=== PATIENT | female | born 1995 ===

== ENCOUNTER 2016-11-06 16:41 | Emergency (ER) | payer OTHER ==
[2016-11-06 16:50] VITALS: TEMP 98.6
--- NOTE | 2016-11-06 17:20 | ED PDOC ---
Lower Extremity Pain/Injury Time Seen by Provider: 11/06/16 17:03 Chief Complaint (Nursing): Lower Extremity Problem/Injury Chief Complaint (Provider): Abscess History Per: Patient History/Exam Limitations: no limitations Onset/Duration Of Symptoms: Days (x2) Current Symptoms Are (Timing): Still Present Additional Complaint(s): Lavern Lora is a 21 year old female presenting to the ED for an evaluation of an abscess to her left upper thigh that began 2 days prior to arrival. The patient states she visited her PMD 2 days prior to arrival and was started on Cefadroxil which she notes she has been taking without relief. Patient notes the abscess is still draining and the persistence of her symptoms prompted her ED visit today. She denies any pain, but notes irritation to the area. The patient denies fever. Of note, the patient's last tetanus is unknown. Her last menstrual period was 10/14/16. PMD: Declan Anderson MD Past Medical History Reviewed: Historical Data, Nursing Documentation, Vital Signs Vital Signs: Last Vital Signs Temp 98.6 F 11/06/16 16:45 Pulse 104 H 11/06/16 16:45 Resp 20 11/06/16 16:45 BP 150/86 11/06/16 16:45 Pulse Ox 99 11/06/16 16:45 - Medical History PMH: No Chronic Diseases - Family History Family History: States: Unknown Family Hx - Social History Current smoker - smoking cessation education provided: No Ex-Smoker (has not smoked in the last 12 months): No Alcohol: Other Drugs: Denies - Immunization History Hx Tetanus Toxoid Vaccination: No Hx Influenza Vaccination: No Hx Pneumococcal Vaccination: No - Home Medications Home Medications: Ambulatory Orders Medication Instructions Recorded Cephalexin [Keflex] 1 tab PO Q12 #20 cap 07/20/15 Sulfamethoxazole/Trimethoprim 1 tab PO BID #20 tab 07/20/15 [Bactrim DS 800 mg-160 mg] - Allergies Allergies/Adverse Reactions: Allergies Allergy/AdvReac Type Severity Reaction Status Date / Time pollen Allergy Uncoded 07/20/15 12:09 Review of Systems ROS Statement: Except As Marked, All Systems Reviewed And Found Negative Constitutional: Negative for: Fever Musculoskeletal: Negative for: Leg Pain Skin: Positive for: Other (abscess to left upper thigh ) Physical Exam - Reviewed Nursing Documentation Reviewed: Yes Vital Signs Reviewed: Yes - Physical Exam Appears: Positive for: Non-toxic, No Acute Distress Head Exam: Positive for: ATRAUMATIC, NORMOCEPHALIC Extremity: Positive for: Other (left upper thigh: 1 x 1 cm fluctuant abscess with mild drainage with surrounding erythema and mild induration; right upper thigh: 1 x 1 cm erythematous bump, nondraining, nontendor, nonfluctant ) Neurologic/Psych: Positive for: Alert, Oriented (x3) - ECG O2 Sat by Pulse Oximetry: 99 (RA) Pulse Ox Interpretation: Normal Medical Decision Making Medical Decision Making: Time: 17:03 Impression: Abscess Plan: * Adacel 0.5 ml IM * Will drain left upper thigh abscess. Apply warm compress to right upper thigh bump. Patient advised to keep the area clean and dry. She was advised to apply warm, dry heat. She was advised to return to her PMD, Urgent Care, or ED in 2 days for packing removal and wound check. Continue taking antibiotics as prescribed by her PMD. Scribe Attestation: Documented by Mabel Freire, acting as a scribe for Irina Horn PA-C. Provider Scribe Attestation: All medical record entries made by the Scribe were at my direction and personally dictated by me. I have reviewed the chart and agree that the record accurately reflects my personal performance of the history, physical exam, medical decision making, and the department course for this patient. I have also personally directed, reviewed, and agree with the discharge instructions and disposition. Procedures - Incision and Drainage Site: left upper inner thigh Blade Size: 15 I & D Procedure: betadine prep, sterile drapes applied, gauze wick placed Progress: pt tolerated procedure and advised to keep the packing in place. Discussed with pt to follow up in ED in 2 days to take the packing out. Disposition - Clinical Impression Clinical Impression: Abscess, Cellulitis - Patient ED Disposition Is Patient to be Admitted: No Counseled Patient/Family Regarding: Diagnosis, Need For Followup, Rx Given - Disposition Referrals: [facility] [Outside] Disposition: Routine/Home Disposition Time: 17:56 Condition: FAIR Additional Instructions: KEEP AFFECTED AREA CLEAN AND DRY. PACKING TO REMAIN IN PLACE FOR 2 DAYS. CHANGE TOP DRESSING DAILY OR NEEDED. F/U WITH PMD, ED, URGENT CARE FOR PACKING REMOVAL AND WOUND CHECK. TAKE ANTIBIOTIC PRESCRIBED BY PMD. Instructions: Cellulitis (ED), Abscess (ED) Forms: [employer] (Khmer) Print Language: MONGOLIAN
[2016-11-06 18:33] VITALS: BP 128/70; PULSE 88; RESP 18
[2016-11-06 19:30] VITALS: O2SAT 99
== END 2016-11-06 18:34 | disposition home or self-care (01) ==
LOC: H.ER 16:41
DX: L02.416 Cutaneous abscess of left lower limb (principal)

== ENCOUNTER 2016-11-08 18:35 | Emergency (ER) | payer OTHER ==
[2016-11-08 18:58] VITALS: BP 155/88; PULSE 82; RESP 18; TEMP 99.5; O2SAT 98
--- NOTE | 2016-11-08 19:24 | ED PDOC ---
HPI: Wound Care - HPI Chief Complaint (Nursing): Wound Check History Per: Patient Exam Limitations: no limitations Onset/Duration Of Symptoms: Days (2) Current Symptoms Are (Timing): Better Additional History Per: Patient Additional Complaint(s): 21 y/o female s/p I&D two days ago here for wound evaluation and packing removal. Denies any complaints at this time. Past Medical History Vital Signs: Last Vital Signs Temp 99.5 F 11/08/16 18:55 Pulse 82 11/08/16 18:55 Resp 18 11/08/16 18:55 BP 155/88 H 11/08/16 18:55 Pulse Ox 98 11/08/16 18:55 - Family History Family History: States: Unknown Family Hx - Immunization History Hx Tetanus Toxoid Vaccination: No Hx Influenza Vaccination: No Hx Pneumococcal Vaccination: No - Home Medications Home Medications: Ambulatory Orders Medication Instructions Recorded Cephalexin [Keflex] 1 tab PO Q12 #20 cap 07/20/15 Sulfamethoxazole/Trimethoprim 1 tab PO BID #20 tab 07/20/15 [Bactrim DS 800 mg-160 mg] - Allergies Allergies/Adverse Reactions: Allergies Allergy/AdvReac Type Severity Reaction Status Date / Time pollen Allergy Uncoded 07/20/15 12:09 Review of Systems ROS Statement: Except As Marked, All Systems Reviewed And Found Negative Physical Exam - Physical Exam Appears: Positive for: Well, Non-toxic, No Acute Distress Skin: Positive for: Normal Color (wound is clean and dry with minimal erythema and drainage), Warm, Dry - ECG O2 Sat by Pulse Oximetry: 98 (RA) Medical Decision Making Medical Decision Making: Impression: Wound Check Packing removed from wound. There is minimal erythema and drainage. Patient tolerated well without complaint. Continue antibiotic through completion and follow up with PMD. All questions answered. Scribe Attestation Documented by Annamarie Fleming acting as a scribe for Rasheeda Carlson PA-C. Provider Attestation All medical record entries made by the Scribe were at my direction and personally dictated by me. I have reviewed the chart and agree that the record accurately reflects my personal performance of the history, physical exam, medical decision making, and the department course for this patient. I have also personally directed, reviewed, and agree with the discharge instructions and disposition. Disposition - Clinical Impression Clinical Impression: Encounter for wound re-check - Patient ED Disposition Is Patient to be Admitted: No Doctor Will See Patient In The: Office Counseled Patient/Family Regarding: Diagnosis, Need For Followup - Disposition Disposition: Routine/Home Disposition Time: 19:24 Condition: FAIR Instructions: Abscess (ED) Forms: [employer] (Eritrean)
== END 2016-11-08 19:27 | disposition home or self-care (01) ==
LOC: H.ER 18:35
DX: Z48.00 Encounter for change or removal of nonsurgical wound dressing (principal)

== ENCOUNTER 2018-04-28 00:34 | Emergency (ER) | payer SELFPAY ==
[2018-04-28 01:01] VITALS: TEMP 99
[2018-04-28] MEDS ORDERED: Sodium Chloride 0.9% 1,000 ML IV STA (01:18)
[2018-04-28 01:37] LABS: BASO # 0.1 K/uL (0.0-0.2); BASO % 0.6 % (0.0-2.0); EOS # 0.1 K/uL (0.0-0.7); EOS % 0.8 % (0.0-4.0); HEMOGLOBIN 11.7 g/dL (12.0-16.0); LYMPH # 2.4 K/uL (1.0-4.3); MEAN CELL VOLUME 72.9 fl (81.0-99.0); MEAN CORPUSCULAR HEMOGLOBIN 22.9 pg (27.0-31.0); MEAN CORPUSCULAR HGB CONC 31.4 g/dL (33.0-37.0); MEAN PLATELET VOLUME 9.1 fl (7.2-11.7); MONO # 0.6 K/uL (0.0-0.8); MONO % 5.6 % (0.0-10.0); NEUT # 6.8 K/uL (1.8-7.0); RBC 5.1 Mil/uL (3.80-5.20); RED CELL DISTRIBUTION WIDTH 15.3 % (11.5-14.5); WHITE BLOOD COUNT 9.9 K/uL (4.8-10.8)
[2018-04-28 01:43] LABS: BLOOD UREA NITROGEN 16 mg/dl (7-17); CALCIUM 9.3 mg/dL (8.4-10.2); GFR NON-AFRICAN AMERICAN > 60
[2018-04-28 02:51] LABS: BARBITURATES, UR NEGATIVE (NEGATIVE); BENZODIAZEPINES, UR NEGATIVE (NEGATIVE); OPIATES, UR NEGATIVE (NEGATIVE); PHENCYCLIDINE, UR NEGATIVE (NEGATIVE)
--- NOTE | 2018-04-28 02:56 | ED PDOC ---
HPI: Chest Pain Time Seen by Provider: 04/28/18 00:54 Chief Complaint (Nursing): Palpitations Chief Complaint (Provider): Palpitations History Per: Patient History/Exam Limitations: no limitations Additional Complaint(s): 23 y/o female with no past medical history presents to the ED complaining of palpitations. Patient believes she was exposed to PCP after a retail delivery driver dropped her food off. She states that the van the food was delivered in had a peculiar odor and that the food itself had a peculiar odor. Patient states she took a deep breath of the food and started experiencing palpitations. When she checked her heart rate she found that it was around 160-180 beats per minute. Patient denies chest pain and shortness of breath. She states she no longer has palpitations but still feels a "funny sensation" and feels a scratchiness in her throat. Past Medical History Reviewed: Historical Data, Nursing Documentation, Vital Signs Vital Signs: Last Vital Signs Temp 99 F 04/28/18 00:59 Pulse 108 H 04/28/18 00:59 Resp 19 04/28/18 00:59 BP 135/82 04/28/18 00:59 Pulse Ox 100 04/28/18 00:59 - Medical History PMH: No Chronic Diseases - Surgical History Surgical History: No Surg Hx - Family History Family History: States: Unknown Family Hx - Immunization History Hx Tetanus Toxoid Vaccination: No Hx Influenza Vaccination: No Hx Pneumococcal Vaccination: No - Home Medications Home Medications: Ambulatory Orders Medication Instructions Recorded Cephalexin [Keflex] 1 tab PO Q12 #20 cap 07/20/15 Sulfamethoxazole/Trimethoprim 1 tab PO BID #20 tab 07/20/15 [Bactrim DS 800 mg-160 mg] Ibuprofen [Motrin Tab] 800 mg PO Q6H PRN #20 tab 12/14/16 Naproxen 375 mg PO Q8 PRN #21 tablet 10/16/17 - Allergies Allergies/Adverse Reactions: Allergies Allergy/AdvReac Type Severity Reaction Status Date / Time No Known Allergies Allergy Verified 04/28/18 01:02 Review of Systems ROS Statement: Except As Marked, All Systems Reviewed And Found Negative ENT: Positive for: Throat Pain (scratchy) Cardiovascular: Positive for: Palpitations. Negative for: Chest Pain Respiratory: Negative for: Shortness of Breath Physical Exam - Reviewed Nursing Documentation Reviewed: Yes Vital Signs Reviewed: Yes - Physical Exam Appears: Positive for: Well, Non-toxic, No Acute Distress Head Exam: Positive for: ATRAUMATIC, NORMAL INSPECTION, NORMOCEPHALIC Skin: Positive for: Normal Color, Warm, DRY Eye Exam: Positive for: EOMI, Normal appearance, PERRL ENT: Positive for: Normal ENT Inspection Neck: Positive for: Normal, Painless ROM Cardiovascular/Chest: Positive for: Regular Rate, Rhythm. Negative for: Murmur Respiratory: Positive for: Normal Breath Sounds. Negative for: Respiratory Distress Gastrointestinal/Abdominal: Positive for: Normal Exam, Soft. Negative for: Tenderness Back: Positive for: Normal Inspection Extremity: Positive for: Normal ROM. Negative for: Pedal Edema, Deformity Neurological/Psych: Positive for: Awake, Alert, Normal Tone, Mood/Affect ( anxious). Negative for: Motor/Sensory Deficits - Laboratory Results Result Diagrams: 04/28/18 01:32 04/28/18 01:32 Lab Results: Troponin I < 0.0120 ng/mL (0.00-0.120) 04/28/18 01:32 - ECG O2 Sat by Pulse Oximetry: 100 (RA) Pulse Ox Interpretation: Normal Medical Decision Making Medical Decision Making: Time: 01:18 A/P: 23 y/o with resolved unknown tachycardic arrhythmia after potential drug exposure. Will continue to monitor for further dysrhythmia and urine drug screen. * Labs * IV Fluids 3:45 --HR 88, patient playing on iPad, appearing well, states she's feeling better --Patient was able to walk around E.R. without palpitations of any symptoms --Referral given to cardiology --Well appearing upon discharge Scribe Attestation: Documented by Jason Doran, acting as a scribe for Elieser Carbajal MD Provider Scribe Attestation: All medical record entries made by the Scribe were at my direction and pe rsonally dictated by me. I have reviewed the chart and agree that the record accurately reflects my personal performance of the history, physical exam, medical decision making, and the department course for this patient. I have also personally directed, reviewed, and agree with the discharge instructions and disposition. Disposition - Clinical Impression Clinical Impression: Palpitations - Patient ED Disposition Is Patient to be Admitted: No - Disposition Referrals: Declan Anderson MD [Primary Care Provider] - Lyndon Sheridan MD [Staff Provider] - Edward Holland MD [Staff Provider] - Disposition: Routine/Home Disposition Time: 03:45 Condition: IMPROVED Instructions: Palpitations Forms: [employer] (Maldivian)
[2018-04-28 04:10] VITALS: BP 134/91; PULSE 88; RESP 17; O2SAT 99
== END 2018-04-28 04:08 | disposition home or self-care (01) ==
LOC: H.ER 00:34
DX: R00.2 Palpitations (principal)
CPT/HCPCS: 80048; 84484; 85025; 96360; 99283; G0480; J7030

== ENCOUNTER 2018-04-28 17:01 | Emergency (ER) | payer OTHER ==
[2018-04-28 17:16] VITALS: O2SAT 100
[2018-04-28] MEDS ORDERED: Naproxen 500 MG TAB PO STA (17:46)
[2018-04-28] MEDS ORDERED: Naproxen 500 MG TAB PO ONE (18:54)
--- NOTE | 2018-04-28 19:27 | ED PDOC ---
HPI: Headache Time Seen by Provider: 04/28/18 17:21 Chief Complaint (Nursing): Headache Chief Complaint (Provider): Headache History Per: Patient History/Exam Limitations: no limitations Onset/Duration Of Symptoms: Days (x 1) Current Symptoms Are (Timing): Still Present Quality: "Pain" Preceeding Symptoms: None Additional Complaint(s): 23 year old female with no significant medical history presents to the ED for evaluation of a headache associated with nausea. Patient was initially seen this morning at this ED due to concern that she had accidentally consumed PCP in her take out food. She was discharged without any physical complaints. Patient reports after disposition, she developed a headache that worsened throughout the day. She is able to tolerate water, but no food. Denies vomiting, weakness, numbness, vision changes and trauma. PMD: Dr. Declan Anderson Past Medical History Reviewed: Historical Data, Nursing Documentation, Vital Signs Vital Signs: Last Vital Signs Temp 98.1 F 04/28/18 17:13 Pulse 85 04/28/18 17:13 Resp 16 04/28/18 17:13 BP 137/84 04/28/18 17:13 Pulse Ox 100 04/28/18 17:13 - Medical History PMH: No Chronic Diseases - Surgical History Surgical History: No Surg Hx - Family History Family History: States: Unknown Family Hx - Immunization History Hx Tetanus Toxoid Vaccination: No Hx Influenza Vaccination: No Hx Pneumococcal Vaccination: No - Home Medications Home Medications: Ambulatory Orders Medication Instructions Recorded Cephalexin [Keflex] 1 tab PO Q12 #20 cap 07/20/15 Sulfamethoxazole/Trimethoprim 1 tab PO BID #20 tab 07/20/15 [Bactrim DS 800 mg-160 mg] Ibuprofen [Motrin Tab] 800 mg PO Q6H PRN #20 tab 12/14/16 Naproxen 375 mg PO Q8 PRN #21 tablet 10/16/17 - Allergies Allergies/Adverse Reactions: Allergies Allergy/AdvReac Type Severity Reaction Status Date / Time No Known Allergies Allergy Verified 04/28/18 17:09 Review of Systems ROS Statement: Except As Marked, All Systems Reviewed And Found Negative Constitutional: Negative for: Fever, Chills, Other (trauma) Eyes: Negative for: Vision Change Gastrointestinal: Positive for: Nausea. Negative for: Vomiting Neurological: Positive for: Headache. Negative for: Weakness, Numbness Physical Exam - Reviewed Nursing Documentation Reviewed: Yes Vital Signs Reviewed: Yes - Physical Exam Appears: Positive for: Non-toxic, No Acute Distress Head Exam: Positive for: ATRAUMATIC, NORMAL INSPECTION, NORMOCEPHALIC Skin: Positive for: Normal Color, Warm, Dry. Negative for: Rash Eye Exam: Positive for: EOMI, Normal appearance, PERRL Neck: Positive for: Normal, Painless ROM, Supple Cardiovascular/Chest: Positive for: Regular Rate, Rhythm. Negative for: Murmur Respiratory: Positive for: Normal Breath Sounds. Negative for: Wheezing, Respiratory Distress Gastrointestinal/Abdominal: Positive for: Normal Exam, Soft. Negative for: Tenderness, Mass, Guarding Back: Positive for: Normal Inspection. Negative for: L CVA Tenderness, R CVA Tenderness Extremity: Positive for: Normal ROM (x 4). Negative for: Deformity Neurological/Psych: Positive for: Awake, Alert, Normal Tone, Oriented. Negative for: Motor/Sensory Deficits - ECG O2 Sat by Pulse Oximetry: 100 (RA) Pulse Ox Interpretation: Normal Medical Decision Making Medical Decision Makin:45 MDM: Headache After lengthy discussion with patient about risks of radiation, patient understands and is still requesting a CT. She is refusing labs at this time because they were already performed this morning. Po Reglan and Naproxen given. Ct brain obtained. 19:00 Patient signed out to Dr. Juarez pending CT, reevaluation and disposition. Scribe Attestation: Documented by Tanvi Menendez, acting as a scribe Mark Dos Santos MD Provider Scribe Attestation: All medical record entries made by the Scribe were at my direction and personally dictated by me. I have reviewed the chart and agree that the record accurately reflects my personal performance of the history, physical exam, medical decision making, and the department course for this patient. I have also personally directed, reviewed, and agree with the discharge instructions and disposition Disposition - Clinical Impression Clinical Impression: Headache - Patient ED Disposition Is Patient to be Admitted: Transfer of Care - Disposition Referrals: Dipak Figueroa MD [Staff Provider] - Disposition: Transfer of Care Disposition Time: 19:00 Condition: GOOD Additional Instructions: STACY ANTHONY INDRA, thank you for letting us take care of you today. Your provider was Josesito Juarez MD and you were treated for HEADACHE FOLOW UP. The emergency medical care you received today was directed at your acute symptoms. If you were prescribed any medication, please fill it and take as directed. It may take several days for your symptoms to resolve. Return to the Emergency Department if your symptoms worsen, do not improve, or if you have any other problems. Please contact your doctor or call one of the physicians/clinics you have been referred to that are listed on the Patient Visit Information form that is included in your discharge packet. Bring any paperwork you were given at discharge with you along with any medications you are taking to your follow up visit. Our treatment cannot replace ongoing medical care by a primary care provider outside of the emergency department. Thank you for allowing the [facility] team to be part of your care today. Instructions: Headache, Adult (DC) Forms: [employer] (Icelandic) Patient Signed Over To: Josesito Juarez
--- NOTE | 2018-04-28 20:05 | ED PDOC ---
- ECG O2 Sat by Pulse Oximetry: 100 (RA) Pulse Ox Interpretation: Normal Medical Decision Making Medical Decision Makin:00 Patient signed out to this provider by Dr. Dos Santos pending CT and disposition. 20:[address] COMMENTS: The study shows normal configuration of sella turcica. There are no intra or extra-axial collections. There is no mass effect or midline shift. There is no evidence of hematoma formation. No hydrocephalus is present. The ventricles are symmetrical. No abnormal calcifications are present. No significant focal abnormalities are seen either in the posterior fossa or supratentorial compartment. IMPRESSION: No acute intracranial pathology. 20:19 Patient reports improvement of symptoms and is stable for discharge. Return precautions provided. Scribe Attestation: Documented by Tanvi Menendez, acting as a scribe Siva Juarez MD Provider Scribe Attestation: All medical record entries made by the Scribe were at my direction and personally dictated by me. I have reviewed the chart and agree that the record accurately reflects my personal performance of the history, physical exam, medical decision making, and the department course for this patient. I have also personally directed, reviewed, and agree with the discharge instructions and disposition Disposition Doctor Will See Patient In The: Office Counseled Patient/Family Regarding: Studies Performed, Diagnosis, Need For Followup - Clinical Impression Clinical Impression: Headache - POA Present On Arrival: None - Disposition Referrals: Dipak Figueroa MD [Staff Provider] - Disposition: Routine/Home Disposition Time: 20:19 Condition: GOOD Additional Instructions: STACY BURRELL, thank you for letting us take care of you today. Your provider was Josesito Juarez MD and you were treated for HEADACHE FOLOW UP. The emergency medical care you received today was directed at your acute symptoms. If you were prescribed any medication, please fill it and take as directed. It may take several days for your symptoms to resolve. Return to the Emergency Department if your symptoms worsen, do not improve, or if you have any other problems. Please contact your doctor or call one of the physicians/clinics you have been referred to that are listed on the Patient Visit Information form that is included in your discharge packet. Bring any paperwork you were given at discharge with you along with any medications you are taking to your follow up visit. Our treatment cannot replace ongoing medical care by a primary care provider outside of the emergency department. Thank you for allowing the [facility] team to be part of your care today. Instructions: Headache, Adult (DC) Forms: [employer] (Ukrainian)
[2018-04-28 20:39] VITALS: BP 103/53; PULSE 89; RESP 18; TEMP 98.3
--- NOTE | 2018-04-29 08:30 | CT ---
Date of service: 04/28/2018 PROCEDURE: CT HEAD WITHOUT CONTRAST. HISTORY: dizziness and GORMAN COMPARISON: None available. TECHNIQUE: Axial computed tomography images were obtained through the head/brain without intravenous contrast. Supplemental Coronal and Sagittal projections created and reviewed. Radiation dose: Total exam DLP = 1290.69 mGy-cm. This CT exam was performed using one or more of the following dose reduction techniques: Automated exposure control, adjustment of the mA and/or kV according to patient size, and/or use of iterative reconstruction technique. FINDINGS: HEMORRHAGE: No intracranial hemorrhage. BRAIN: No mass effect or edema. No atrophy or chronic microvascular ischemic changes. VENTRICLES: Unremarkable. No hydrocephalus. CALVARIUM: Unremarkable. PARANASAL SINUSES: Unremarkable as visualized. No significant inflammatory changes. MASTOID AIR CELLS: Unremarkable as visualized. No inflammatory changes. OTHER FINDINGS: None. IMPRESSION: No acute intracranial abnormalities. No significant findings to account for the clinical presentation. Concordant results (preliminary interpretation) provided by [facility]. Procedure Completed: 19:51. Preliminary Report: Interpreted and electronically signed: 20:04. Final Interpretation: 08:24. April 29, 2018
== END 2018-04-28 20:42 | disposition home or self-care (01) ==
LOC: H.ER 17:01
DX: R51 Headache (principal)
CPT/HCPCS: 70450; 81025; 96374; 99285; J2765